=== PATIENT | female | born 1990 | race Caucasian/White ===

== ENCOUNTER → 2020-10-01 09:41 | Outpatient (CLI) | payer OTHER, SELFPAY ==
[2020-10-01 09:13] VITALS: BMI 26.9
[2020-10-01 11:48] LABS: hCG Titer Quant., Serum 7916 mIU/mL (1-3)
== END ==
PROVIDERS: PCP Nurse Practitioner Family; Referring Provider Obstetrics & Gynecology; Visit Provider Obstetrics & Gynecology
DX: O20.0 Threatened abortion (principal); Z3A.00 Weeks of gestation of pregnancy not specified
CPT/HCPCS: 36415; 84702; 86850; 86900; 86901

== ENCOUNTER 2020-10-03 10:59 | Day surgery (SDC) | payer OTHER, SELFPAY ==
[2020-10-01 09:13] VITALS: BMI 26.9
[2020-10-03] VITALS (7 sets, daily range): BP systolic 110–123; BP diastolic 68–78; PULSE 56–76; RESP 16–18; TEMP 36.4–36.8; O2SAT 94–100; BMI 26.6
[2020-10-03] MEDS: Doxycycline 100 MG CAPSULE 200 MG PO (10:00)
[2020-10-03 12:09] LABS: Hematocrit 37.7 % (37-47); Hemoglobin 12.8 g/dL (12.0-15.0); Mean Corpuscular Hgb 31.4 pg (27.0-32.0); Mean Corpuscular Volume 92.6 fL (81-99); Mean Platelet Vol. 9.4 fl (6.2-12.0); Platelet Count 263 K/mm3 (150-450); RBC Distribution Width CV 11.7 % (11.6-14.6); RBC Distribution Width SD 39.5 fl (35.1-43.9); Red Blood Count 4.07 M/mm3 (4.2-5.4); White Blood Count 5.7 K/mm3 (4.4-11.0)
--- NOTE | 2020-10-03 12:20 | HP.PCM.OB_ITS ---
HPI - General HPI Narrative LEIGH BARRY, is a 30 F who presents for suction D&C for missed . Maternal Data Information ELAINE Calculator Estimated Delivery Date Method Current WG Current Estimate 04/27/21 LMP (Certain) 10w 4d PFSH PFSH Home Medications prenat.vits,santy,qpn-fetd-fqmaw 1 tab PO DAILY 09/22/20 [History Last Taken Unknown] psyllium husk 0.4 gram capsule 0.4 g PO DAILY 09/22/20 [History Last Taken Unknown] Allergy/AdvReac Type Severity Reaction Status Date / Time No Known Allergies Allergy Verified 10/03/20 12:09 Family History Grandfather CAD (coronary artery disease) Diabetes Father Unknown family medical history Surgical History (Updated 10/02/20 @ 13:51 by Xiomara Guerrero) H/O colonoscopy Hx of LASIK S/P wisdom tooth extraction Social History adopted: No household members: spouse current occupational status: employed current occupation: [employer] pets and animals: Yes pets and animals: cat(s) Smoking Status: Never smoker alcohol intake: current alcohol intake frequency: holidays/special occasions only substance use type: does not use Visit Details Expected Delivery Route/Plan Plans OB Flowsheet Initial Weight: Not Recorded Date -?-?-?-?-?-?-?-?-?-?-?-?- EGA Weight BP Urine Prot -?-?-?-?-?-?-?-?-?-?-?-?- Glucose FHR FuHt Pres Dilation -?-?-?-?-?-?-?-?-?-?-?-?- Effaced St Visit Note 10/01/20 -?-?-?-?-?-?-?-?-?-?-?-?- 10w 2d 157 lb 4 oz 140/82 -?-?-?-?-?-?-?-?-?-?-?-?- -?-?-?-?-?-?-?-?-?-?-?-?- GP - presented f or NOB. On US, found to have pole measuring 8/3 with no HR. 10/03/20 -?-?-?-?-?-?-?-?-?-?-?-?- 10w 4d 155 lb 6.814 oz 123/68 -?-?-?-?-?-?-?-?-?-?-?-?- -?-?-?-?-?-?-?-?-?-?-?-?- ROS Eyes Eyes: Reports systems reviewed and no addt'l complaints, except as documented ENT HEENT: Reports systems reviewed and no addt'l complaints, except as documented Cardiovascular Cardiovascular: Reports systems reviewed and no addt'l complaints, except as documented Respiratory/Chest Respiratory/Chest: Reports systems reviewed and no addt'l complaints, except as documented Gastrointestinal Gastrointestinal: Reports systems reviewed and no addt'l complaints, except as documented Genitourinary Genitourinary: Reports systems reviewed and no addt'l complaints, except as documented Musculoskeletal Musculoskeletal: Reports systems reviewed and no addt'l complaints, except as documented Integumentary Integumentary: Reports systems reviewed and no addt'l complaints, except as documented Neurologic Neurologic: Reports systems reviewed and no addt'l complaints, except as documented Psychiatric Psychiatric: Reports systems reviewed and no addt'l complaints, except as documented Endocrine Endocrinology: Reports systems reviewed and no addt'l complaints, except as documented Hematologic/Lymphatic Hematologic/Lymphatic: Reports systems reviewed and no addt'l complaints, except as documented Allergic/Immunologic Allergic/Immunologic: Reports systems reviewed and no addt'l complaints, except as documented Vital Signs Vital Signs Vital Signs: 10/03/20 12:09 Temperature 97.9 F Temperature Source Temporal Pulse Rate 70 Respiratory Rate 18 Respiratory Pattern Normal Blood Pressure 123/68 H Blood Pressure Mean 86 Blood Pressure Source Monitor Blood Pressure Position Semi-Fowlers Blood Pressure Location Left Arm Pulse Ox 100 Oxygen Delivery Method Room Air Weight Weight: 155 lb 6.814 oz Body Mass Index (BMI) 26.6 Physical Exam Const alert, oriented x3, no apparent distress, average body habitus, healthy appearing and well nourished HEENT normocephalic and moist oral mucous membranes Head and Scalp: atraumatic Eyes PERRL and EOMs intact bilaterally Neck full ROM Resp normal respiratory effort, no retractions and no use of accessory muscles Cardio regular rate and regular rhythm GI soft to palpation, non-tender and non-distended Extremity normal to inspection and full ROM Skin no rashes or lesions noted Neuro no focal motor deficits and no sensory deficits noted Psych mental status grossly normal, affect normal, speech normal and activity/motor behavior normal Labs Labs Labs: Blood Type AB NEGATIVE Antibody Screen NEGATIVE Hct 37.7 % (37-47) Hgb 12.8 g/dL (12.0-15.0) Assessment & Plan (1) Missed : PLAN: Diagnosed on US based on CRL measuring 8w3d with no HR or doppler flow Offered formal scan, but patient declines Reassurance provided that this was not a preventable occurrence and will not affect future pregnancies dDiscussed management options including expectant management, medical management, and surgical management. Elected for surgical management. Risks, benefits, indications and alternatives to surgery discussed with patient. Discussed can begin trying to conceive again as soon as through miscarriage Blood type Rh negative - rhogam given Quant ordered
[2020-10-03] MEDS: Lactated Ringers 1,000 ML 100 ML IV (12:30)
--- NOTE | 2020-10-03 13:00 | POC_PTH ---
PATIENT: LEIGH BARRY LOC: [facility] U#:[id number] AGE/SX: 30/F ROOM: RE10/03/[address]: Dr. April Clark MD : 1990 BED: DIS: 10/03/2020 SPEC #: [id number] RECD: 10/03/20 14:22 STATUS: INDRA MOSELEY #: [id number] MAG: 10/03/20 13:[address]: April Clark DEPT: SURGICAL PATHOLOGY RECD BY: Susan Cyr ENTERED: 10/06/20 08:57 SP TYPE: PROD CONC OTHR DR: Nicky Ozuna, DANIELLE Tissues: Product of conception, NOS Procedures: Surgery Specimen Level IV HEADER OPERATION: Suction dilation and curettage PRE-OP DIAGNOSIS: Missed TISSUE SUBMITTED: Products of conception MICROSCOPIC DIAGNOSIS Products of conception: Immature chorionic villi, decidua and gestational endometrium (products of conception). SJ:aguila 10/07/2020 MICROSCOPIC DESCRIPTION Slides are reviewed. GROSS DESCRIPTION Received in fixative is one container labeled with the patient's name and designated products of conception. The specimen consists of multiple pieces of gilmore-pink soft tissue that in aggregate measure 5 x 6 x 1.5 cm. tissue is not identified. Banking Management Consulting Manager tissue is submitted in two cassettes. / NIKI:aguila 10/06/20 TC:5 CPT: 10810
--- NOTE | 2020-10-03 13:48 | DCINST_ITS ---
Discharge Instructions Diet Discharge Diet: No restrictions Activity Discharge Activity: Return to Normal Activity and No Restrictions May resume sexual activity in: 1-2 weeks Dressing / Incision Call your doctor if your incision/area has: Continuous Slow Oozing, Sudden Increased Bleeding and Foul Smelling Discharge Call your doctor if you observe: Fever of 101 or Higher, Shortness of breath, Dizziness, Fainting spells, Chest pain and Uncontrolled pain Follow Up Care Please Follow Up With: April Clark MD When: 2 weeks Test Results: Test results from this visit will be discussed in further detail at your follow-up appointment, if applicable. Discharge Plan Admission Primary Reason for Your Visit: D&C Attending Provider: April Clark Primary Care Provider: Nicky Ozuna NP Instructions Patient Instructions: Dilation and Curettage Discharge Orders/Prescriptions Prescriptions: New naproxen 250 MG tablet 250 - 500 mg PO Q8H PRN PRN (Reason: MILD PAIN) Qty: 30 RF: 1 Continued psyllium husk [Daily Fiber] 0.4 gram capsule 0.4 g PO DAILY RF: 0 prenat.vits,santy,jaj-iqpa-sfzam Tablet 1 tab PO DAILY RF: 0 Referrals / Follow Up: Nicky Ozuna NP, [facility] [Primary Care Provider] - Disposition Disposition (needs filled in before D/C Order can be placed): Home, self care
--- NOTE | 2020-10-03 13:50 | PCM.OPRPT ---
Problems Associated Problem List Diagnoses (1) Missed : Report of Operation Date of Procedure: 10/03/20 Pre-Operative Diagnosis: Missed Post-Operative Diagnosis: Same Surgery/Procedure Performed:: Suction D&C Description of Surgical Findings:: Normal-appearing cervix. supervisor concrete stone fabricating: None Type of Anesthesia: MAC Special Medications: Doxycycline 200 mg p.o. preop Specimen's removed: Products of conception Estimated Blood Loss (mL): 25 ml Fluids Replaced: 1000 ml Description of Procedure: The patient was taken to the operating room where anesthesia was obtained without difficulty. She was prepped and draped in the dorsal lithotomy position with yellofin stirrups. A weighted speculum was placed in the posterior aspect of the vagina and the anterior lip of the cervix was grasped with a ring forcep. The cervix was sequentially dilated to accommodate a #8 curved curette. The suction was activated and the products of conception were removed in an outward rotating movement. A gentle sharp curettage was then performed followed by an additional pass with the suction. The procedure was deemed complete. All instruments were removed from the vagina. The patient was awakened from anesthesia and taken to the recovery room in stable condition. Complications None apparent Admit VTE Documentation VTE Present on Admission: No VTE Mechan Device Prophylaxis: SCD's VTE Pharm Prophylaxis ordered?: No Procedures Urinary/Genital [id number]: [id number] Trmt of incomplete Ab, any TM
== END 2020-10-03 15:31 | disposition home or self-care (01) ==
LOC: SDC 11:00 → AC 11:01
PROVIDERS: PCP Nurse Practitioner Family; Referring Provider Obstetrics & Gynecology; Visit Provider Obstetrics & Gynecology
PROC: (CPT 59820; principal; 2020-10-03 12:45)
DX: O02.1 Missed abortion (principal); Z20.822 Contact with and (suspected) exposure to COVID-19; Z3A.08 8 weeks gestation of pregnancy
CPT/HCPCS: 01965; 59820; 85027; 86850; 86900; 86901; 87426; 88305; J7120; J2405

== ENCOUNTER → 2020-11-18 | Outpatient (CLI) | payer OTHER, SELFPAY ==
[2020-11-18 15:22] VITALS: BMI 27.4
== END | disposition home or self-care (01) ==
LOC: LABSPEC 16:34
PROVIDERS: PCP Nurse Practitioner Family; Referring Provider Nurse Practitioner Women's Health; Visit Provider Nurse Practitioner Women's Health
DX: R30.0 Dysuria (principal)
CPT/HCPCS: 87086; 87088; 87186